=== PATIENT | female | born 1965 | race Caucasian/White ===

== ENCOUNTER 2023-02-27 13:36 | Emergency (ER) | payer OTHER, SELFPAY ==
[2023-02-27 13:39] VITALS: BP 153/76; PULSE 71; RESP 17; TEMP 36.6; O2SAT 98
--- NOTE | 2023-02-27 13:47 | ECG_ITS ---
Measurements Intervals [place] Rate: 63 P: -16 MD: 120 QRS: 39 QRSD: 75 T: 44 QT: 403 QTc: 413 Interpretive Statements SINUS RHYTHM NORMAL ECG NO PREVIOUS ECG AVAILABLE FOR COMPARISON Electronically Signed On 02-27-2023 14:22:31 CDT by Jonatan Almaguer D.O.
[2023-02-27 14:21] LABS: Alanine Aminotransferase 18 U/L (6-35); Albumin Level 4.1 g/dL (3.5-5.1); Alkaline Phosphatase 83 U/L (38-126); Anion Gap 5 mmol/L (8-16); Aspartate Amino Transferase 20 U/L (14-36); Bilirubin,Total 0.4 mg/dL (0.2-1.3); Blood Urea Nitrogen 13 mg/dL (7-17); Calcium 8.9 mg/dL (8.4-10.2); Carbon Dioxide 29 mmol/L (22-30); Chloride 104 mmol/L (98-107); Estimated Glomerular Filt Rate > 60; Glucose 85 mg/dL (65-110); Potassium 3.3 mmol/L (3.4-5.0); Sodium 138 mmol/L (137-145)
[2023-02-27 14:29] LABS: Basophils Absolute Auto 0.1 K/mm3 (0.0-0.1); Basophils Percent Auto 0.6 % (0.2-1.2); Eosinophils Absolute Auto 0.1 K/mm3 (0-0.3); Immature Granulocyte Absolute 0.04 K/mm3 (0.00-0.031); Immature Granulocyte Percent A 0.5 % (0-0.5); Lymphocytes Absolute Auto 2.53 K/mm3 (0.9-3.2); Lymphocytes Percent Auto 30.3 % (18.3-44.2); Mean Corpuscular HGB Conc 33.3 g/dl (32-36); Mean Corpuscular Hemoglobin 31.8 pg (26-34); Mean Corpuscular Volume 95.4 fl (80-100); Mean Platelet Volume 10.3 fl (7.4-10.4); Monocytes Absolute Auto 0.5 K/mm3 (0.1-0.6); Monocytes Percent Auto 6.3 % (2.6-8.5); Neutrophils Absolute Auto 5.1 K/mm3 (1.3-6.7); Neutrophils Percent Auto 61.3 % (45.5-73.1); Platelet Count Result 349 k/mm3 (150-375); Red Blood Count 3.46 M/mm3 (4.2-5.4); Red Cell Distribution Width 12.9 % (11.5-14.5); White Blood Count 8.4 K/mm3 (4.5-10.0)
[2023-02-27 16:05] VITALS: BP 148/64; BP 157/75; PULSE 70; PULSE 84
[2023-02-27 16:07] VITALS: BP 183/65; PULSE 79
--- NOTE | 2023-02-27 16:33 | ED.SYNCOPE ---
HPI - Syncope General Chief Complaint: Syncope Stated Complaint: syncope Time Seen by Provider: 02/27/23 13:48 History of Present Illness HPI narrative: Patient is a 57-year-old female who presents ER status post syncope. She was at [employer] when she became hot and flushed and passed out. She was lowered to the ground by a coworker. Brief LOC. Denies having any chest pain or palpitations. Reports she has not had anything to eat or drink today. Denies fevers or chills or sweats. No nausea or vomiting. No complaints at this time. Patient was placed in a c-collar despite no trauma. Related Data Allergies Allergy/AdvReac Type Severity Reaction Status Date / Time clarithromycin Allergy Unknown GI upset Unverified 10/09/18 14:52 tolterodine Allergy Unknown Unverified 10/09/18 14:52 STARTS WITH AN L FOR FREQ Allergy Severe swelling Uncoded 04/09/12 12:51 URINATION of tongue Review of Systems Constitutional: Constitutional: Denies chills, Denies fatigue and Denies fever(s) ENT: Denies nasal congestion and Denies sore throat Cardiovascular: Cardiovascular: Denies chest pain, Denies rapid heart rate and Denies radiating jaw, neck or arm pain Respiratory: Respiratory: Denies cough and Denies dyspnea Gastrointestinal: Gastrointestinal: Denies abdominal pain, Denies nausea and Denies vomiting Neurologic: Reports syncope, Denies headache(s), Denies focal weakness and Denies numbness PMFSH Past Medical History Medical History (Updated 02/27/23 @ 17:05 by Milton Dhaliwal MD) Anxiety Depression Hypertension Surgical History Surgical History (Updated 02/27/23 @ 16:36 by Milton Dhaliwal MD) History of cholecystectomy History of tonsillectomy Exam Narrative: GENERAL: Well-appearing, well-nourished, and in no acute distress. HEAD: Normocephalic, atraumatic. EYES: PERRL and EOMI. ENT: Mucous membranes moist. NECK: Supple. No midline tenderness CHEST: Clear to auscultation. No respiratory distress. HEART: Regular rate and rhythm. Normal peripheral pulses. ABDOMEN: Soft, nontender, nondistended. EXTREMITIES: Normal range of motion. No edema. SKIN: Warm, dry, no rash. NEURO: Alert and oriented x3. PSYCH: Normal mood and affect. Course Course Emergency Course: Patient resting comfortably. No hypotension. Normal orthostatics. Palpitations or arrhythmia. Patient felt appropriate for discharge home Vital Signs Vital signs: Vital Signs Temperature 97.8 F 02/27/23 13:39 Pulse Rate 71 02/27/23 13:39 Respiratory Rate 17 02/27/23 13:39 Blood Pressure 153/76 H 02/27/23 13:39 Pulse Oximetry 98 02/27/23 13:39 Oxygen Delivery Room Air 02/27/23 13:39 Temperature 97.8 F 02/27/23 13:39 Pulse Rate 79 02/27/23 16:07 Respiratory Rate 17 02/27/23 13:39 Blood Pressure 183/65 H 02/27/23 16:07 Pulse Oximetry 98 02/27/23 13:39 Oxygen Delivery Room Air 02/27/23 13:39 MDM - Syncope Lab Data 02/27/23 13:55 02/27/23 13:55 Labs: Lab Results 02/27/23 Range/Units 13:55 WBC 8.4 (4.5-10.0) K/mm3 RBC 3.46 L (4.2-5.4) M/mm3 Hgb 11.0 L (12.0-15.0) g/dL Hct 33.0 L (37.0-47.0) % MCV 95.4 (80-100) fl MCH 31.8 (26-34) pg MCHC 33.3 (32-36) g/dl RDW 12.9 (11.5-14.5) % Plt Count 349 (150-375) k/mm3 MPV 10.3 (7.4-10.4) fl Immature Gran % (Auto) 0.5 (0-0.5) % Neut % (Auto) 61.3 (45.5-73.1) % Lymph % (Auto) 30.3 (18.3-44.2) % [place] % (Auto) 6.3 (2.6-8.5) % Eos % (Auto) 1.0 (0-4.4) % Baso % (Auto) 0.6 (0.2-1.2) % Lymph # (Auto) 2.53 (0.9-3.2) K/mm3 [place] # (Auto) 0.5 (0.1-0.6) K/mm3 Eos # (Auto) 0.1 (0-0.3) K/mm3 Baso # (Auto) 0.1 (0.0-0.1) K/mm3 Abs Immat Gran (auto) 0.04 H (0.00-0.031) K/mm3 Absolute Neuts (auto) 5.1 (1.3-6.7) K/mm3 Absolute Nucleated RBC 0.0 (0.0-0.012) K/mm3 Nucleated RBC % 0.0 (0.0-0.2) % Sodium 138 (137-145) mmol/L Potassium 3.3 L (
== END 2023-02-27 17:42 | disposition home or self-care (01) ==
PROVIDERS: Emergency Medicine; Emergency Provider Emergency Medicine; PCP Physician Assistant
DX: R55 Syncope and collapse (principal); Z90.49 Acquired absence of other specified parts of digestive tract
CPT/HCPCS: 36415; 80053; 85025; 93005; 99284